=== PATIENT | male | born 1965 | race Caucasian/White ===

== ENCOUNTER 2017-02-19 10:35 | Emergency (ER) | payer OTHER ==
[~2017-02-19] VITALS: Ht 175.3 cm; Wt 100.5 kg
[~2017-02-19 10:35] MED LIST: CEPH-443 PO
[2017-02-19 10:53] VITALS: Ht 175.3 cm; Wt 100.5 kg
[2017-02-19] MEDS ORDERED: LIDOCAINE 1% (MDV) 20 ML INJ SC ONE (13:00)
--- NOTE | 2017-02-19 13:43 | ERD ---
ER Documentation Chief Complaint Date/Time DATE: 02/19/17 TIME: 13:31 Chief Complaint Sent from MD for eval and I&D abscess HPI 51-year-old male sent here by PCP for incision and drainage of an abscess on his back. Patient states that he has become red and inflamed in the last 5 days , and start draining blood in the last 2 days. Patient has a history of sebaceous cysts in the back and had received multiple incision and drainages before. Denies fever or chills. Denies back pain. Denies numbness or tingling in the extremities. ROS All systems reviewed and are negative except as per history of present illness. Medications Home Meds Active Scripts Cephalexin* (Keflex*) 500 Mg Capsule, 500 MG PO QID for 5 Days, CAP Prov:BALBINA LÓPEZ PA-C 04/27/16 Allergies Allergies: Coded Allergies: No Known Allergy (Unverified , 02/19/17) PMhx/Soc History of Surgery: No Anesthesia Reaction: No Hx Neurological Disorder: No Hx Respiratory Disorders: No Hx Cardiac Disorders: Yes (HTN) Hx Psychiatric Problems: No Hx Miscellaneous Medical Probl: Yes (HERPES) Hx Alcohol Use: No Hx Substance Use: No Hx Tobacco Use: No Physical Exam Vitals Vital Signs Date Time Temp Pulse Resp B/P Pulse Ox O2 Delivery O2 Flow Rate FiO2 02/19/17 10:53 98.0 86 20 181/96 98 Physical Exam General: Well-developed, well-nourished, conscious and coherent, in no distress Skin: Warm and dry without rash, good texture and turgor. A 2 x 3 cm sized erythematous nodule surrounding a low incision scar, small amount of dried blood was draining from the center. Head: Normocephalic without evidence of trauma Eyes: Sclera and conjunctivae normal; pupils equal, round, and reactive to light; extraocular movements are intact Neck: Supple without meningismus or adenopathy. Carotids are equal. Trachea midline. No bruits or JVD Chest: Normal AP diameter. Good expansion without retractions. Nontender. Lungs are clear to auscultate bilaterally with good tidal volume Heart: Regular rate and rhythm. No murmur, rub, or gallops heard Back: Without spinal or CVA tenderness Extremities: Full range of motion. Good strength bilaterally. No clubbing, cyanosis, or edema. Peripheral pulses are intact. Sensation intact Neuro: Alert and oriented 4, GCS 15. Cranial nerves grossly intact. Motor and sensory exams nonfocal. Moves all extremities. Speech clear. Gait normal Results 24 hrs Current Medications Medications (Trade) Dose Ordered Sig/Kylah Route PRN Reason Start Time Stop Time Status Last Admin Dose Admin Lidocaine (Xylocaine 1% (Mdv) 20 ml) 20 ml ONCE ONCE SC 02/19/17 13:00 02/19/17 13:01 DC Procedures/MDM Procedure note: Incision and Drainage Verbal consent obtained for incision and drainage of patient's abscess. The area was prepped with Betadine. Lidocaine 1% was infiltrated for local anesthesia. After appropriate anesthesia, incision was made using #11 blade. Copious amount of purulent discharge, Tim, and sac was drained from the abscess. The abscess was probed for loculation. It was then irrigated with 100 ml of NS solution. Iodoform 1" packing tape was inserted into the abscess. The wound was then cleaned and dressed. Patient tolerated procedure well. I doubt the patient has a bacterial infection or cellulitis. I do not feel antibiotic treatment is indicated at this time. Patient advised to return to eating 2 days for follow-up and dressing change. Disclaimer: Inadvertent spelling and grammatical errors are likely due to EHR/ dictation software use and do not reflect on the overall quality of patient care. Also, please note that the electronic time recorded on this note does not necessarily reflect the actual time of the patient encounter. Departure Diagnosis: Primary Impression: Infected sebaceous cyst Condition: Stable Patient Instructions: Sebaceous Cyst, Infected (I And D) Referrals: [facility], [facility] YOU HAVE RECEIVED A MEDICAL SCREENING EXAM AND THE RESULTS INDICATE THAT YOU DO NOT HAVE A CONDITION THAT REQUIRES URGENT TREATMENT IN THE EMERGENCY DEPARTMENT. FURTHER EVALUATION AND TREATMENT OF YOUR CONDITION CAN WAIT UNTIL YOU ARE SEEN IN YOUR DOCTORS OFFICE WITHIN THE NEXT 1-2 DAYS. IT IS YOUR RESPONSIBILITY TO MAKE AN APPOINTMENT FOR FOLOW-UP CARE. IF YOU HAVE A PRIMARY DOCTOR --you should call your primary doctor and schedule an appointment IF YOU DO NOT HAVE A PRIMARY DOCTOR YOU CAN CALL OUR PHYSICIAN REFERRAL HOTLINE AT IF YOU CAN NOT AFFORD TO SEE A PHYSICIAN YOU CAN CHOSE FROM THE FOLLOWING [facility] [address] [facility]. [facility] [address] [facility] [address] [facility] [address] [facility] [address] [facility]. [facility] [address] Additional Instructions: Return to this facility in 2 DAYS for a follow-up exam.Return sooner if your condition worsens. PAULETTE FREGOSO. COOPER Feb 19, 2017 13:43
== END 2017-02-19 14:23 | disposition home or self-care (01) ==
LOC: FTE 10:35
DX: L02.212 Cutaneous abscess of back [any part, except buttock and flank] (principal); I10 Essential (primary) hypertension
CPT/HCPCS: 10060; Z7502; Z7610

== ENCOUNTER 2017-02-21 09:02 | Emergency (ER) | payer OTHER ==
[~2017-02-21] VITALS: Ht 160 cm; Wt 81.0 kg
[2017-02-21 09:04] VITALS: Ht 160 cm; Wt 81.0 kg
--- NOTE | 2017-02-21 09:21 | ERD ---
ER Documentation Chief Complaint Date/Time DATE: 02/21/17 TIME: 09:19 Chief Complaint s/p i&d lower back abcess HPI 56-year-old male comes in status post incision and drainage of an upper back abscess that was incised and drained 2 days ago. He states that there is packing material, and has been slightly draining over the last day as he works outside, otherwise he is doing well. He has not had any fevers or chills, pain is decreased. ROS All systems reviewed and are negative except as per history of present illness. Medications Home Meds Active Scripts Cephalexin* (Keflex*) 500 Mg Capsule, 500 MG PO QID for 5 Days, CAP Prov:BALBINA LÓPEZ PA-C 04/27/16 Allergies Allergies: Coded Allergies: No Known Allergy (Unverified , 02/19/17) PMhx/Soc History of Surgery: No Anesthesia Reaction: No Hx Neurological Disorder: No Hx Respiratory Disorders: No Hx Cardiac Disorders: Yes (HTN) Hx Psychiatric Problems: No Hx Miscellaneous Medical Probl: Yes (HERPES) Hx Alcohol Use: No Hx Substance Use: No Hx Tobacco Use: No Physical Exam Vitals Vital Signs Date Time Temp Pulse Resp B/P Pulse Ox O2 Delivery O2 Flow Rate FiO2 02/21/17 09:04 98.1 78 18 128/67 99 Physical Exam General: Well-developed, well-nourished. The patient appears in no acute distress. HEENT: Head is normocephalic, atraumatic. No scleral icterus. Neck: Supple. Nontender. Lungs: Clear to auscultation. Normal air movement. Heart: Regular rate and rhythm. S1 and S2 are normal. No murmurs, gallops, or rubs. Abdomen: Nontender. soft Extremities: No clubbing or cyanosis. Normal pulses. Moving extremities x 4. No weakness. Neurologic: Alert and oriented 3. No focal deficits. Skin: Mid back has a 1.5 cm incision, there is packing material seen, when removed the wound is dry, without any purulent drainage, no fluctuance. Procedures/MDM 51-year-old male comes in with an infected sebaceous cyst that was incised and drained, doing well. There is no longer any purulent drainage, no surrounding cellulitis. He has been asked to follow-up, he states that his doctors are to put a referral to see dermatology. Departure Diagnosis: Primary Impression: Encounter for wound re-check Condition: Good Patient Instructions: Abscess, Incision And Drainage BLAYNE WETZEL PA-C Feb 21, 2017 09:21
== END 2017-02-21 09:35 | disposition home or self-care (01) ==
LOC: FTE 09:02
DX: Z48.01 Encounter for change or removal of surgical wound dressing (principal); I10 Essential (primary) hypertension
CPT/HCPCS: 99281